=== PATIENT | female | born 1995 | race Two or more races ===

== ENCOUNTER 2022-08-29 08:37 | Outpatient (CLI) | payer OTHER, SELFPAY ==
[2022-08-29 09:13] LABS: Basophils Absolute Auto 0.1 K/mm3 (0.0-0.1); Basophils Percent Auto 0.8 % (0.2-1.2); Eosinophils Absolute Auto 0.1 K/mm3 (0-0.3); Eosinophils Percent Auto 1.5 % (0-4.4); Hematocrit 37.4 % (37.0-47.0); Hemoglobin 11.8 g/dL (12.0-15.0); Immature Granulocyte Absolute 0.01 K/mm3 (0.00-0.031); Immature Granulocyte Percent A 0.2 % (0-0.5); Lymphocytes Percent Auto 32.2 % (18.3-44.2); Mean Corpuscular HGB Conc 31.6 g/dl (32-36); Mean Corpuscular Hemoglobin 25.8 pg (26-34); Mean Corpuscular Volume 81.7 fl (80-100); Mean Platelet Volume 11.2 fl (7.4-10.4); Monocytes Absolute Auto 0.4 K/mm3 (0.1-0.6); Monocytes Percent Auto 6.7 % (2.6-8.5); Neutrophils Absolute Auto 3.8 K/mm3 (1.3-6.7); Neutrophils Percent Auto 58.6 % (45.5-73.1); Platelet Count Result 331 k/mm3 (150-375); Red Blood Count 4.58 M/mm3 (4.2-5.4); Red Cell Distribution Width 14.9 % (11.5-14.5); White Blood Count 6.5 K/mm3 (4.5-10.0)
[2022-08-29 09:18] LABS: Beta HCG Quantitative < 2.39 mIU/ML
[2022-09-02 12:12] LABS: DHEA-Sulfate 64 mcg/dL (18-391)
[2022-09-02 15:16] LABS: FSH 5.6 mIU/mL (***); Progesterone 0.2 ng/mL (***); Prolactin 15.4 ng/mL (***)
[2022-09-04 21:57] LABS: Testosterone Free 2.5 pg/mL (0.1-6.4); Testosterone Total 31 ng/dL (2-45)
[2022-09-09 23:51] LABS: Estradiol, Ultrasensitive 84 pg/mL
== END 2022-08-29 08:38 | disposition home or self-care (01) ==
LOC: ANHLAB 08:40
PROVIDERS: Visit Provider Obstetrics & Gynecology
DX: N92.0 Excessive and frequent menstruation with regular cycle (principal)
CPT/HCPCS: 36415; 82627; 82670; 83001; 83498; 84144; 84146; 84402; 84403; 84702; 85025

== ENCOUNTER 2022-10-15 02:08 | Day surgery (SDC) | payer OTHER, SELFPAY ==
[2022-09-30 10:45] VITALS: BMI 53.8
--- NOTE | 2022-09-30 10:49 | PC.NURSE ---
Report to the Outpatient Waiting Room, entrance under the green pavilion located off [facility], at time 1000 on date 10/15/22. Planned Procedure Time: 1200. Time changes happen often and if your time is changed the preop area will call you the afternoon before. - You and your visitor will be asked to self-screen and do not enter if you have any COVID symptoms. - Only one visitor is requested with a max of two and NO children visitors are allowed at this time. - The patient visitor may be requested to leave or wait in car when not with patient due to distancing restrictions. - A mask is REQUIRED within the hospital. Patients may have clear liquids (water, carbonated beverages, clear teas, apple juice) until 3 hours prior to surgery with a maximum of 20 ounces. - No food from midnight until time of surgery Take the following medications with a SIP of water the morning of surgery: WELLBUTRIN, ABILIFY Medications to discontinue per physician: N/A Date to take last dose: N/A Please no make-up, nail frisian, hairspray, perfume, deodorant, or body powder the day of surgery. No jewelry (including any body piercings) or valuables the day of surgery, leave them at home. Please take a shower or bath the night before, or the morning of, surgery with an antibacterial soap. Wear comfortable, loose fitting clothing. - Jewelry must be removed prior to entering the operating room. Rings and piercings that are not removed may be cut off. - The hospital will not accept responsibility for valuables. - Please leave all valuables, including medications, at home the day of surgery. If you are going home after surgery, a licensed tow truck driver must drive you home. - NO public transportation without another adult if you receive anesthesia. - We recommend that an adult stay with you for 24 hours following discharge. - We also recommend that you do not drive, make important decision, drink alcoholic beverages, or take any drugs that were not prescribed by your health care provider for at least 24 hours after your discharge time. Follow any additional instructions given to you from your surgeon. If you or anyone in your household have experienced Covid symptoms in the past week, please notify your surgeon or the nurse liaison at the phone number below for possible testing. Telephone instructions given to PT - ASHLEY BAIG and asked if any additional questions and then verbalized understanding. Patient advised to call surgeon office or pre surgery nurse liaison [phone] if any additional questions.
--- NOTE | 2022-10-14 13:55 | PM.IMHP ---
H&P: HPI History of Present Illness Date/Time: 10/14/22 13:55 Chief Complaint: request permanent sterilization Narrative: a 27-year-old G0 who presents for bilateral laparoscopic tubal ligation. Patient presented requesting permanent sterilization. Patient was counseled on alternative forms of contraception. Patient was adamant she does not desire children. Patient consented to proceed with elective permanent sterilization Review of Systems Cardiovascular: Cardiovascular: Denies chest pain, Denies leg edema, Denies palpitations, Denies dyspnea and Denies dyspnea on exertion Respiratory: Respiratory: Denies cough, Denies dyspnea and Denies dyspnea on exertion Gastrointestinal: Gastrointestinal: Denies abdominal pain, Denies constipation, Denies diarrhea, Denies nausea and Denies vomiting Genitourinary: Genitourinary: Denies hematuria, Denies urinary frequency, Denies dysuria, Denies pelvic pain, Denies urinary incontinence and Denies vaginal discharge Neurologic: Reports system reviewed and no additional complaints, except as documented Psychiatric: Psychiatric: Reports no additional psychiatric complaints Endocrine: Endocrine: Denies palpitations [facility] Family History Family History Other Acute myocardial infarction Cervical cancer Social History Social History Years smoked: 3 Smoking status: Former smoker Tobacco type: cigarettes Smoking end date: 10/11/15 Alcohol intake: current Drinks per week: 2 Substance use: never Substance use type: does not use Living arrangements: with family 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 Gender identity (if verbalized by the patient): Other Sexual Orientation (if Verbalized by the Patient): Bisexual Spiritual care concerns: No Meds Home Medications and Allergies Home Medications Medication Instructions Recorded Confirmed Type aripiprazole 2 mg tablet 2 mg PO DAILY 09/30/22 09/30/22 History bupropion HCl 150 mg 24 hr tablet, 150 mg PO DAILY 09/30/22 09/30/22 History extended release Allergies Allergy/AdvReac Type Severity Reaction Status Date / Time No Known Allergies Allergy Verified 09/30/22 10:44 Exam Const: General: no acute distress Eyes: EOM: EOMs intact bilaterally Neck: Neck: supple Thyroid: thyroid normal Chest: Breast/axilla inspection: normal inspection of the breasts Breast/axilla palpation: normal palpation of the breasts, normal palpation of the axillae and no axillary lymphadenopathy Resp: Effort & Inspection: normal respiratory effort Auscultation: clear to auscultation bilaterally Cardio: Rate: regular rate Rhythm: regular rhythm GI: Inspection: non-distended GI Palp: Yes Soft to palpation, No Tenderness to palpation present (GI) and No Guarding due to palpation present (GI) Auscultation: normal bowel sounds : General: No bladder normal to palpation External Female Exam: normal external appearance Speculum Exam - Vagina: normal vaginal discharge and No vaginal bleeding Speculum Exam - Cervix: nontender Bimanual exam- vagina & uterus: No bladder normal to palpation and No Cervical tenderness present OB/external & speculum: No vaginal bleeding Skin: General skin exam: normal color and no rashes or lesions noted Neuro: Cognition (Neuro): normal cognition Speech: normal speech Extrem: General: normal to inspection and no edema Psych: Mental Status: mental status grossly normal Affect: normal affect Assessment and Plan Assessment and plan (1) Encounter for sterilization: Code(s): Z30.2 - Encounter for sterilization Status: Acute Assessment and Plan: ?27-year-old G0 who requests bilateral tubal ligation for permanent sterilization Patient states she is known for 10 years she does not want children Alternative forms of contraception
[2022-10-15] VITALS (10 sets, daily range): BP systolic 150–167; BP diastolic 72–97; PULSE 88–107; RESP 14–16; TEMP 36.9–37.1; O2SAT 97–100
--- NOTE | 2022-10-15 09:31 | WPDANESEPPF ---
Anes - Initial Pre Proc Eval Procedure: Operation Date: 10/15/22 12:00 Proposed Procedures p Bilateral Laparoscopic Tubal Ligation - Ignacio Jesus MD Date/Time: 10/15/22 09:31 Surgeon: Ignacio Jesus MD Pre Op Diagnosis: desires sterilization Patient Data Age: 27 Gender: F Height: 1.55 m Weight: 129.3 kg Allergies Allergy/AdvReac Type Severity Reaction Status Date / Time No Known Allergies Allergy Verified 09/30/22 10:44 Home Medications Medication Instructions Recorded Confirmed Type aripiprazole 2 mg tablet 2 mg PO DAILY 09/30/22 09/30/22 History bupropion HCl 150 mg 24 hr tablet, 150 mg PO DAILY 09/30/22 09/30/22 History extended release Patient hx anesthesia problems: none Family hx anesthesia problems: none Results Review: All pre-operative results and documents have been reviewed as part of the pre-operative evaluation. 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 Gender identity (if verbalized by the patient): Other Sexual Orientation (if Verbalized by the Patient): Bisexual Spiritual care concerns: No Anes - Eval Final PreProcedure Day of Procedure 10/15/22 09:31 Patient weight: morbidly obese Heart: regular rate and rhythm Lungs: clear to auscultation Airway: Mallampati scale class II Neurological: alert and oriented Last oral intake: >/= 8 hours ASA classification: III Emergent: no Anesthetic plan: proceed Anesthesia type and monitoring: general ETT and standard monitoring Results Review: All pre-operative results and documents have been reviewed as part of the pre-operative evaluation. Informed Consent: The patient's anesthetic plan and its attendant risks and benefits were discussed with the patient/family/POA. Questions were solicited and answers provided to the satisfaction of the patient/family/POA.
--- NOTE | 2022-10-15 11:08 | WPDHPUPDATE1 ---
History and Physical Update Update Date/Time: 10/15/22 11:08 History and Physical has been reviewed, including an updated exam of the patient. There are NO changes in the patient's condition. Risks, benefits, and alternatives have been discussed and questions answered. Patient agrees to proceed with procedure.
[2022-10-15] MEDS: ACETAMINOPHEN 500 MG TABLET 1000 MG PO (11:15)
[2022-10-15] MEDS: LACTATED RINGERS 1,000 ML 30 ML IV CONT ×2 (11:15→13:37)
[2022-10-15] MEDS: KETOROLAC 15 MG/ML VIAL (*BKC) IV PUSH (11:15)
[2022-10-15] MEDS: LIDOCAINE 1% BUFFERED WITH 8.4% SODIUM BICARB 1 ML SYRINGE 10 ML INFILTRATE (12:58)
--- NOTE | 2022-10-15 13:18 | P.OP_ITS ---
Procedure Note - Detailed Date of Procedure 10/15/22 Pre-op Diagnosis desires sterilization Post-op Diagnosis Same Procedure Performed laparoscopic bilateral tubal ligation Surgeon Ignacio Jesus MD Anesthesia General Indications desires permanent sterilization Findings normal appearing uterus, bilateral fallopian tubes and ovaries Description of Procedure the patient was taken to the operating room where general endotracheal anesthesia was undertaken and found to be adequate. She was then prepped and draped in the dorsal lithotomy position. A pre-operative team brief and time- out were completed. A catheter was placed to drain the bladder. Speculum was placed in the vagina and the cervix was identified. An acorn uterine manipulator was placed as well as single-tooth tenaculum on the anterior lip of the cervix. Attention was then turned to the abdomen which was anesthetized umbilical he with injected anesthetic. A 5 mm skin incision was made in the umbilicus. A 5 mm optical trocar was then placed with direct visualization of the abdominal layers during placement. The trocar stylette was removed and the camera was used to verify intra-abdominal placement.ene was used to verify intra-abdominal placement. CO2 insufflation was then connected and The abdominal cavity was insufflated. General abdominal and pelvic survey was performed. Two other laparoscopic port site incisions were made approximately 2 cm superior and medial of the ASIS bilaterally. Both fallopian tubes were inspected and identified out to the level of the fimbriae. The Fimbriated end of the left fallopian tube was then grasped with a blunt grasper. the fallopian tube was then transected along its inferior aspect along the mesosalpinx with the LigaSure device. Transection was carried out to the fallopian tubes insertion into the uterine fundus. The fallopian tube was then completely transected from the uterus using the LigaSure device. This procedure was repeated for the right fallopian tube. Good hemostasis was maintained throughout. The transected fgh the 5 mm laparoscopic portrom the abdomen through the 5 mm laparoscopic port. The surgical field was inspected and again could hemostasis was noted. At this point the procedure was ended. The abdomen was desufflated. All laparoscopic ports were removed from the abdomen. Abdominal incisions were closed with 4-0 Vicryl in a subcuticular fashion.. The acorn manipulator and tenaculum weere removed from the vagina. The cervix was inspected and good hemostasis was obtained. Sponge, lap and needle counts were correct. The patient tolerated the procedure well. The patient was taken out of dorsal lithotomy. anesthesia was reversed. The patient was taken to PACU in stable condition. Estimated Blood Loss 10 Urine Output 50 Drains No Packing No Pathology Yes ( Bilateral fallopian tubes) Complications No immediate complications Condition Stable Disposition PACU [facility] Billing Surgery - Charge Forward: Surgery Billing
[2022-10-15] MEDS: fentaNYL CITRATE INJ (*CRX) 100 MCG/2 ML VIAL 25 MCG IV PUSH ×4 (13:30→13:50)
[2022-10-15] MEDS: oxyCODONE HCL (*CRX) 5 MG TAB IR PO (15:39)
== END 2022-10-15 16:25 | disposition home or self-care (01) ==
PROVIDERS: Visit Provider Student in an Organized Health Care Education/Training Program
PROC: (CPT 58671; principal; 2022-10-15 12:00)
DX: Z30.2 Encounter for sterilization (principal); F41.9 Anxiety disorder, unspecified; F32.A Depression, unspecified; Z87.891 Personal history of nicotine dependence; E66.01 Morbid (severe) obesity due to excess calories; Z68.43 Body mass index [BMI] 50.0-59.9, adult
CPT/HCPCS: 58661; 88302; A9270; J0330; J1100; J1885; J2250; J2405; J2704; J3010; J7120